=== PATIENT | male | born 1950 | race Caucasian/White ===

== ENCOUNTER 2022-09-14 07:30 | Outpatient (RCR) | payer MEDICARE, BC, SELFPAY | END 2022-09-14 09:12 | disposition home or self-care (01) | PROVIDERS: Visit Provider Family Medicine | DX: R26.89 Other abnormalities of gait and mobility (principal); Z51.89 Encounter for other specified aftercare | CPT/HCPCS: 97110; 97162 ==

== ENCOUNTER 2023-07-25 10:16 | Outpatient (CLI) | payer MEDICARE, BC, SELFPAY | END 2023-07-25 10:17 | disposition home or self-care (01) | LOC: WOUND 10:17 | PROVIDERS: Visit Provider Nurse Practitioner Family | DX: I73.9 Peripheral vascular disease, unspecified (principal); L97.322 Non-pressure chronic ulcer of left ankle with fat layer exposed; G60.3 Idiopathic progressive neuropathy | CPT/HCPCS: 97602; 99203 ==

== ENCOUNTER 2023-07-31 07:03 | Outpatient (CLI) | payer MEDICARE, BC, SELFPAY ==
--- NOTE | 2023-07-31 07:15 | CRLHL7_ITS ---
For Patients: As a result of the Century Cures Act, medical imaging exams and procedure reports are released immediately into your electronic medical record. You may view this report before your referring provider. If you have questions, please contact your health care provider. Indication: Claudication Comparison: None Technique: Routine duplex arterial examination of bilateral lower extremities including 2D and spectral analysis, and color Doppler imaging was performed. Findings: In the right lower extremity there are multiphasic waveforms in the common femoral artery, profunda femoral artery, superficial femoral artery, and popliteal artery. Similarly, at the ankle, there are multiphasic waveforms in the posterior tibial artery, and dorsalis pedis arteries. In the left lower extremity there are multiphasic waveforms within the common femoral artery, profunda femoral artery, superficial femoral artery, and popliteal artery. Similarly, at the ankle, there are multiphasic waveforms in the posterior tibial artery, and dorsalis pedis arteries. Impression: Multiphasic waveforms of bilateral lower extremities. No stenosis. Dictated by Suraj Bolanos MD @ 07/31/2023 9:11:14 AM (Electronically Signed)
== END 2023-07-31 07:04 | disposition home or self-care (01) ==
LOC: US 07:06
PROVIDERS: PCP Family Medicine; Visit Provider Nurse Practitioner Family
DX: I73.9 Peripheral vascular disease, unspecified (principal); L65.9 Nonscarring hair loss, unspecified; R09.3 Abnormal sputum; L10.9 Pemphigus, unspecified
CPT/HCPCS: 93926

== ENCOUNTER 2023-08-01 10:04 | Outpatient (CLI) | payer MEDICARE, BC, SELFPAY ==
[2023-08-01 11:27] LABS: C Reactive Protein* 3.1 mg/dL (0.5-1.0)
[2023-08-01 11:32] LABS: Erythrocyte SedimentationRate* 8 mm/hr (2-15)
[2023-08-01 12:14] LABS: Vitamin B12* 852 pg/mL (243-894)
[2023-08-03 08:58] LABS: Prealbumin 21.1 mg/dL (20.0-40.0)
[2023-08-03 15:05] LABS: Zinc, Serum/Plasma 74.3 ug/dL (60.0-120.0)
== END 2023-08-01 10:05 | disposition home or self-care (01) ==
LOC: WOUND 10:04
PROVIDERS: PCP Family Medicine; Visit Provider Nurse Practitioner Family
DX: I73.9 Peripheral vascular disease, unspecified (principal); L97.322 Non-pressure chronic ulcer of left ankle with fat layer exposed; G60.3 Idiopathic progressive neuropathy; E53.8 Deficiency of other specified B group vitamins; E60 Dietary zinc deficiency
CPT/HCPCS: 36415; 82607; 82728; 84134; 84439; 84443; 84630; 85651; 86140; 99213

== ENCOUNTER 2023-08-08 10:31 | Outpatient (CLI) | payer MEDICARE, BC, SELFPAY | END 2023-08-08 10:32 | disposition home or self-care (01) | LOC: WOUND 10:32 | PROVIDERS: PCP Family Medicine; Visit Provider Nurse Practitioner Family | DX: I73.9 Peripheral vascular disease, unspecified (principal); L97.322 Non-pressure chronic ulcer of left ankle with fat layer exposed; G60.3 Idiopathic progressive neuropathy | CPT/HCPCS: 99212 ==

== ENCOUNTER 2024-08-06 07:30 | Outpatient (RCR) | payer MEDICARE, BC, SELFPAY | END 2024-10-29 12:59 | disposition home or self-care (01) | PROVIDERS: PCP Family Medicine; Visit Provider Family Medicine | DX: R26.89 Other abnormalities of gait and mobility (principal); Z51.89 Encounter for other specified aftercare | CPT/HCPCS: 97110; 97161 ==

== ENCOUNTER 2024-09-10 07:42 | Outpatient (CLI) | payer MEDICARE, BC, SELFPAY | END 2024-09-10 07:43 | disposition home or self-care (01) | LOC: INJ CL 07:42 | PROVIDERS: PCP Family Medicine; Visit Provider Family Medicine | DX: M54.16 Radiculopathy, lumbar region (principal); M51.369 Other intervertebral disc degeneration, lumbar region without mention of lumbar back pain or lower extremity pain | CPT/HCPCS: 64483; 64484; J1100; Q9966 ==

== ENCOUNTER 2024-09-12 08:12 | Outpatient (CLI) | payer MEDICARE, BC, SELFPAY | END 2024-09-12 08:13 | disposition home or self-care (01) | LOC: WOUND 08:12 | PROVIDERS: PCP Family Medicine; Visit Provider Nurse Practitioner Family | DX: I73.9 Peripheral vascular disease, unspecified (principal); G60.3 Idiopathic progressive neuropathy; L97.322 Non-pressure chronic ulcer of left ankle with fat layer exposed | CPT/HCPCS: 97597; G0463 ==

== ENCOUNTER 2024-09-19 09:31 | Outpatient (CLI) | payer MEDICARE, BC, SELFPAY | END 2024-09-19 09:32 | disposition home or self-care (01) | LOC: WOUND 09:32 | PROVIDERS: PCP Family Medicine; Visit Provider Nurse Practitioner Family | DX: I73.9 Peripheral vascular disease, unspecified (principal); G60.3 Idiopathic progressive neuropathy; L97.322 Non-pressure chronic ulcer of left ankle with fat layer exposed | CPT/HCPCS: G0463 ==

== ENCOUNTER 2024-10-03 09:44 | Outpatient (CLI) | payer MEDICARE, BC, SELFPAY | END 2024-10-03 09:45 | disposition home or self-care (01) | PROVIDERS: PCP Family Medicine; Visit Provider Nurse Practitioner Family | DX: I73.9 Peripheral vascular disease, unspecified (principal); G60.3 Idiopathic progressive neuropathy; L97.322 Non-pressure chronic ulcer of left ankle with fat layer exposed; S81.811A Laceration without foreign body, right lower leg, initial encounter | CPT/HCPCS: 97597 ==

== ENCOUNTER 2024-10-17 09:43 | Outpatient (CLI) | payer MEDICARE, BC, SELFPAY | END 2024-10-17 09:44 | disposition home or self-care (01) | LOC: WOUND 09:43 | PROVIDERS: PCP Family Medicine; Visit Provider Nurse Practitioner Family | DX: I73.9 Peripheral vascular disease, unspecified (principal); G60.3 Idiopathic progressive neuropathy; L97.322 Non-pressure chronic ulcer of left ankle with fat layer exposed; S81.811A Laceration without foreign body, right lower leg, initial encounter | CPT/HCPCS: 97597 ==

== ENCOUNTER 2024-10-24 09:38 | Outpatient (CLI) | payer MEDICARE, BC, SELFPAY | END 2024-10-24 09:39 | disposition home or self-care (01) | LOC: WOUND 09:39 | PROVIDERS: PCP Family Medicine; Visit Provider Nurse Practitioner Family | DX: I73.9 Peripheral vascular disease, unspecified (principal); G60.3 Idiopathic progressive neuropathy; L97.322 Non-pressure chronic ulcer of left ankle with fat layer exposed | CPT/HCPCS: 97597 ==

== ENCOUNTER 2024-10-31 09:45 | Outpatient (CLI) | payer MEDICARE, BC, SELFPAY | END 2024-10-31 09:46 | disposition home or self-care (01) | LOC: WOUND 09:45 | PROVIDERS: PCP Family Medicine; Visit Provider Nurse Practitioner Family | DX: I73.9 Peripheral vascular disease, unspecified (principal); G60.3 Idiopathic progressive neuropathy; L97.322 Non-pressure chronic ulcer of left ankle with fat layer exposed; L97.311 Non-pressure chronic ulcer of right ankle limited to breakdown of skin | CPT/HCPCS: 97597 ==

== ENCOUNTER 2024-11-07 09:38 | Outpatient (CLI) | payer MEDICARE, BC, SELFPAY | END 2024-11-07 09:39 | disposition home or self-care (01) | LOC: WOUND 09:39 | PROVIDERS: PCP Family Medicine; Visit Provider Nurse Practitioner Family | DX: I73.9 Peripheral vascular disease, unspecified (principal); G60.3 Idiopathic progressive neuropathy; L97.322 Non-pressure chronic ulcer of left ankle with fat layer exposed | CPT/HCPCS: 97597 ==

== ENCOUNTER 2024-11-14 09:38 | Outpatient (CLI) | payer MEDICARE, BC, SELFPAY | END 2024-11-14 09:39 | disposition home or self-care (01) | PROVIDERS: PCP Family Medicine; Visit Provider Nurse Practitioner Family | DX: I73.9 Peripheral vascular disease, unspecified (principal); G60.3 Idiopathic progressive neuropathy; L97.322 Non-pressure chronic ulcer of left ankle with fat layer exposed | CPT/HCPCS: 97597 ==

== ENCOUNTER 2024-11-21 09:35 | Outpatient (CLI) | payer MEDICARE, BC, SELFPAY | END 2024-11-21 09:36 | disposition home or self-care (01) | LOC: WOUND 09:35 | PROVIDERS: PCP Family Medicine; Visit Provider Nurse Practitioner Family | DX: I73.9 Peripheral vascular disease, unspecified (principal); G60.3 Idiopathic progressive neuropathy; L97.322 Non-pressure chronic ulcer of left ankle with fat layer exposed | CPT/HCPCS: 11042 ==

== ENCOUNTER 2024-11-28 09:41 | Outpatient (CLI) | payer MEDICARE, BC, SELFPAY | END 2024-11-28 09:42 | disposition home or self-care (01) | LOC: WOUND 09:41 | PROVIDERS: PCP Family Medicine; Visit Provider Nurse Practitioner Family | DX: I73.9 Peripheral vascular disease, unspecified (principal); G60.3 Idiopathic progressive neuropathy; L97.322 Non-pressure chronic ulcer of left ankle with fat layer exposed | CPT/HCPCS: 11042 ==

== ENCOUNTER 2024-12-05 09:36 | Outpatient (CLI) | payer MEDICARE, BC, SELFPAY | END 2024-12-05 09:37 | disposition home or self-care (01) | LOC: WOUND 09:36 | PROVIDERS: PCP Family Medicine; Visit Provider Nurse Practitioner Family | DX: I87.312 Chronic venous hypertension (idiopathic) with ulcer of left lower extremity (principal); I73.9 Peripheral vascular disease, unspecified; G60.3 Idiopathic progressive neuropathy; L97.322 Non-pressure chronic ulcer of left ankle with fat layer exposed | CPT/HCPCS: 97597 ==

== ENCOUNTER 2024-12-19 09:42 | Outpatient (CLI) | payer MEDICARE, BC, SELFPAY | END 2024-12-19 09:43 | disposition home or self-care (01) | LOC: WOUND 09:42 | PROVIDERS: PCP Family Medicine; Visit Provider Physician Assistant Surgical | DX: I87.312 Chronic venous hypertension (idiopathic) with ulcer of left lower extremity (principal); I73.9 Peripheral vascular disease, unspecified; G60.3 Idiopathic progressive neuropathy; L97.322 Non-pressure chronic ulcer of left ankle with fat layer exposed | CPT/HCPCS: 11042 ==

== ENCOUNTER 2024-12-26 09:39 | Outpatient (CLI) | payer MEDICARE, BC, SELFPAY | END 2024-12-26 09:40 | disposition home or self-care (01) | LOC: WOUND 09:40 | PROVIDERS: PCP Family Medicine; Visit Provider Nurse Practitioner Family | DX: I87.312 Chronic venous hypertension (idiopathic) with ulcer of left lower extremity (principal); I73.9 Peripheral vascular disease, unspecified; G60.3 Idiopathic progressive neuropathy; L97.322 Non-pressure chronic ulcer of left ankle with fat layer exposed | CPT/HCPCS: 97597 ==

== ENCOUNTER 2025-01-02 09:43 | Outpatient (CLI) | payer MEDICARE, BC, SELFPAY | END 2025-01-02 09:44 | disposition home or self-care (01) | LOC: WOUND 09:43 | PROVIDERS: PCP Family Medicine; Visit Provider Nurse Practitioner Family | DX: I87.312 Chronic venous hypertension (idiopathic) with ulcer of left lower extremity (principal); I73.9 Peripheral vascular disease, unspecified; G60.3 Idiopathic progressive neuropathy; L97.322 Non-pressure chronic ulcer of left ankle with fat layer exposed | CPT/HCPCS: 15271; Q4158 ==

== ENCOUNTER 2025-01-09 09:35 | Outpatient (CLI) | payer MEDICARE, BC, SELFPAY | END 2025-01-09 09:36 | disposition home or self-care (01) | LOC: WOUND 09:35 | PROVIDERS: PCP Family Medicine; Visit Provider Nurse Practitioner Family | DX: I87.312 Chronic venous hypertension (idiopathic) with ulcer of left lower extremity (principal); I73.9 Peripheral vascular disease, unspecified; G60.3 Idiopathic progressive neuropathy; L97.322 Non-pressure chronic ulcer of left ankle with fat layer exposed | CPT/HCPCS: G0463 ==

== ENCOUNTER 2025-01-16 09:43 | Outpatient (CLI) | payer MEDICARE, BC, SELFPAY | END 2025-01-16 09:44 | disposition home or self-care (01) | LOC: WOUND 09:43 | PROVIDERS: PCP Family Medicine; Visit Provider Nurse Practitioner Family | DX: I87.312 Chronic venous hypertension (idiopathic) with ulcer of left lower extremity (principal); I73.9 Peripheral vascular disease, unspecified; G60.3 Idiopathic progressive neuropathy; L97.322 Non-pressure chronic ulcer of left ankle with fat layer exposed | CPT/HCPCS: 15271; Q4158 ==

== ENCOUNTER 2025-01-23 09:37 | Outpatient (CLI) | payer MEDICARE, BC, SELFPAY | END 2025-01-23 09:38 | disposition home or self-care (01) | LOC: WOUND 09:37 | PROVIDERS: PCP Family Medicine; Visit Provider Nurse Practitioner Family | DX: I87.312 Chronic venous hypertension (idiopathic) with ulcer of left lower extremity (principal); I73.9 Peripheral vascular disease, unspecified; G60.3 Idiopathic progressive neuropathy; L97.322 Non-pressure chronic ulcer of left ankle with fat layer exposed | CPT/HCPCS: G0463 ==

== ENCOUNTER 2025-01-30 09:35 | Outpatient (CLI) | payer MEDICARE, BC, SELFPAY | END 2025-01-30 09:36 | disposition home or self-care (01) | LOC: WOUND 09:36 | PROVIDERS: PCP Family Medicine; Visit Provider Nurse Practitioner Family | DX: I87.312 Chronic venous hypertension (idiopathic) with ulcer of left lower extremity (principal); I73.9 Peripheral vascular disease, unspecified; G60.3 Idiopathic progressive neuropathy; L97.322 Non-pressure chronic ulcer of left ankle with fat layer exposed | CPT/HCPCS: 87070; 97597 ==

== ENCOUNTER 2025-02-06 09:37 | Outpatient (CLI) | payer MEDICARE, BC, SELFPAY | END 2025-02-06 09:38 | disposition home or self-care (01) | LOC: WOUND 09:37 | PROVIDERS: PCP Family Medicine; Visit Provider Physician Assistant Surgical | DX: I87.312 Chronic venous hypertension (idiopathic) with ulcer of left lower extremity (principal); I73.9 Peripheral vascular disease, unspecified; G60.3 Idiopathic progressive neuropathy; L97.322 Non-pressure chronic ulcer of left ankle with fat layer exposed | CPT/HCPCS: 11042 ==

== ENCOUNTER 2025-02-13 09:43 | Outpatient (CLI) | payer MEDICARE, BC, SELFPAY | END 2025-02-13 09:44 | disposition home or self-care (01) | LOC: WOUND 09:43 | PROVIDERS: PCP Family Medicine; Visit Provider Nurse Practitioner Family | DX: I87.312 Chronic venous hypertension (idiopathic) with ulcer of left lower extremity (principal); I73.9 Peripheral vascular disease, unspecified; G60.3 Idiopathic progressive neuropathy; L97.322 Non-pressure chronic ulcer of left ankle with fat layer exposed | CPT/HCPCS: G0463 ==